=== PATIENT | male | born 1995 | race Two or more races ===

== ENCOUNTER 2019-04-26 12:56 | Emergency (ER) | payer SELFPAY ==
[~2019-04-26] VITALS: Ht 172.7 cm; Wt 90.7 kg
[2019-04-26 13:19] VITALS: BP 147/99
== END 2019-04-26 15:38 | disposition home or self-care (01) ==
LOC: ER 12:56
DX: K04.7 Periapical abscess without sinus (principal); F17.210 Nicotine dependence, cigarettes, uncomplicated

== ENCOUNTER 2020-04-14 11:25 | Emergency (ER) | payer SELFPAY ==
[~2020-04-14] VITALS: Ht 172.7 cm; Wt 96.2 kg
[2020-04-14] MEDS ORDERED: IBUPROFEN 800 MG TAB PO ONE (15:00)
[2020-04-14 15:30] VITALS: BP 116/74
== END 2020-04-14 15:42 | disposition home or self-care (01) ==
LOC: ER 11:25
DX: K04.7 Periapical abscess without sinus (principal)